=== PATIENT | female | born 1955 | race Caucasian/White ===

== ENCOUNTER 2017-03-12 08:49 | Emergency (ER) | payer BC ==
[2017-03-12 09:01] VITALS: TEMP 98; BMI 31.1
[2017-03-12] MEDS ORDERED: KETOROLAC TROMETHAMINE 60 MG/2 ML VIAL IM ONE (09:32)
[2017-03-12] MEDS ORDERED: diazePAM 5 MG TABLET PO ONE (09:32)
[2017-03-12] MEDS ORDERED: KETOROLAC TROMETHAMINE 60 MG/2 ML VIAL ONE (09:37)
[2017-03-12] MEDS ORDERED: diazePAM 5 MG TABLET ONE (09:37)
--- NOTE | 2017-03-12 09:40 | PDOC ---
*Physical Exam - Vital Signs Last Vital Signs Temp Pulse Resp BP Pulse Ox 98 F 85 20 146/107 98 03/12/17 08:58 03/12/17 08:58 03/12/17 08:58 03/12/17 08:58 03/12/17 08:58 Medical Decision Making - Medical Decision Making 03/12/17 09:36 61y F hx of htn, hl, cervical radiculopathy presents with atraumatic left low back pain with radiation down the L legPt notes her back was bothering her yesterday, laura went for her typical walk around the track and was having more pain but pushed through it until she was in significant pain. When she woke up this morning, she felt worsened back pain with parasthesias on her L leg. on exam pt has no focal bony tenderness normal ROM of extremities normal strength sensation intact will give toradol and valium suspect muscle spasm A portion of this note was documented by scribe services under my direction. I have reviewed the details of the note, within reason, and agree with the documentation with the following case summary and management plan written by me 03/14/17 11:23 see other chart for full documentation *DC/Admit/Observation/Transfer Diagnosis at time of Disposition: Sciatica of left side - Discharge Dispostion Disposition: HOME Condition at time of disposition: Improved - Referrals Referrals: Tomas Espinosa MD [Primary Care Provider] - - Patient Instructions Printed Discharge Instructions: DI for Back Pain With Sciatica Additional Instructions: Return to the emergency department immediately with ANY new, persistent or worsening symptoms including numbness, tingling, weakness, fevers or any other concerns. Take ibuprofen (400mg)/tylenol(650mg) every 6 hours for 2 days. Apply heat to your sore muscles. You MUST call and follow up with your doctor tomorrow for further evaluation of your symptoms. Your emergency department visit is not complete without a followup with your doctor for reevaluation.. Results were discussed with you. Please make sure your doctor reviews the results of your emergency evaluation. Print Language: MALTESE - Post Discharge Activity
--- NOTE | 2017-03-12 10:01 | PDOC ---
History of Present Illness - General History Source: Patient, Family Exam Limitations: Language Barrier - History of Present Illness Initial Comments: 03/12/17 10:47 61 year old female, with significant past medical history of HTN, DM, and GERD, who presents to the emergency room complaining of 2 days of atraumatic, gradually worsening lower back pain with numbness and tingling radiating down the left leg that started yesterday morning. Around 3:00pm yesterday, the patient went for her daily walk around the track, but had to stop walking secondary to increasing pain to the lower back. She took 2 Aleve with mild relief. The patient woke up this morning with increased pain and numbness and tingling down her left leg. There is no associated weakness. She notes discomfort while laying down and ambulating. The patient is Vietnamese speaking and history was obtained through translation from daughter and daughter- in- law. Denies recent trauma, and heavy lifting. Denies urinary and bowel incontinence. Denies history of back pain. Denies fever, chills, nausea, vomiting. Denies dysuria, hematuria, urinary frequency Allergies: NKA PCP: Dr. Tomas Espinosa <Stephany Benavidez - Last Filed: 03/12/17 11:22> <Onur Mcguire - Last Filed: 03/12/17 11:38> - General Chief Complaint: Weakness Stated Complaint: WEAKNESS, PAIN Time Seen by Provider: 03/12/17 09:15 Past History <Stephany Benavidez - Last Filed: 03/12/17 11:22> - Past Medical History Anemia: No Asthma: No Cancer: No Cardiac Disorders: No CVA: No COPD: No CHF: No DVT: No Dementia: No Diabetes: Yes Dialysis: No GI Disorders: Yes (GERD) HTN: Yes - Surgical History Abdominal Surgery: (hernia repair) Cholecystectomy: Yes - Immunization History Immunization Up to Date: Yes - Suicide/Smoking/Psychosocial Hx Smoking Status: No Smoking History: Never smoked Have you smoked in the past 12 months: No Number of Cigarettes Smoked Daily: 0 Hx Alcohol Use: No Drug/Substance Use Hx: No Substance Use Type: None Hx Substance Use Treatment: No <Onur Mcguire - Last Filed: 03/12/17 11:38> - Past Medical History Allergies/Adverse Reactions: Allergies Allergy/AdvReac Type Severity Reaction Status Date / Time No Known Allergies Allergy Verified 03/12/17 09:01 Home Medications: Ambulatory Orders Hydrocodone/Acetaminophen [Lortab 7.5-325 mg Tablet] 1 each PO PRN 08/04/15 Review of Systems - Review of Systems Able to Perform ROS?: Yes Comments:: 03/12/17 10:47 CONSTITUTIONAL: No reported: Fever, Chills, Diaphoresis, Generalized Weakness, Malaise, Loss of Appetite HEENT: No reported: Rhinorrhea, Nasal Congestion, Throat Pain, Throat Swelling, Difficulty Swallowing, Mouth Swelling, Ear Pain, Eye Pain, Visual Changes CARDIOVASCULAR: No reported: Chest Pain, Syncope, Palpitations, Irregular Heart Rate, Lightheadedness, Peripheral Edema RESPIRATORY: No reported: Cough, Shortness of Breath, SOB with Exertion, Orthopnea, Wheezing , Stridor, Hemoptysis GASTROINTESTINAL: No reported: Abdominal pain, Abdominal Distension, Nausea, Vomiting, Diarrhea, Constipation, Melena, Hematochezia GENITOURINARY: No reported: Dysuria, Frequency, Urgency, Hesitancy, Flank Pain, Genital Pain MUSCULOSKELETAL: Positive: +lower back pain with numbness and tingling down the leg SKIN: No reported: Rash, Itching, Pallor NEUROLOGIC: No reported: Headache, Focal Weakness, Paresthesias, Vertigo, Lightheadedness, Unsteady Gait, Seizure, Mental Status Changes, Incontinence PSYCHIATRIC: No reported: Anxiety, Depression <Stephany Benavidez - Last Filed: 03/12/17 11:22> *Physical Exam - Vital Signs Last Vital Signs Temp Pulse Resp BP Pulse Ox 98 F 85 20 146/107 98 03/12/17 08:58 03/12/17 08:58 03/12/17 08:58 03/12/17 08:58 03/12/17 08:58 - Physical Exam Comments: 03/12/17 10:47 GENERAL: The patient is awake, alert, and fully oriented, Nontoxic - in no acute distress. HEAD: Normocephalic, atraumatic. NECK: Normal range of motion, supple LUNGS: Breath sounds equal, clear to auscultation bilaterally. No wheezes, no rhonchi, no rales. HEART: Regular rate and rhythm, normal S1 and S2 without murmur, rub or gallop. ABDOMEN: Soft, nontender, normoactive bowel sounds. EXTREMITIES: Normal range of motion, no edema. BACK: no focal midline cervical/thoracic/lumbar tenderness, mild L lower back pain, mild L buttock pain that exacerbates her tingling, +SLR on L leg to 45 degrees. NEUROLOGICAL: No facial assymetry, Normal speech, movin all 4 extremities spontaneously and symmetrically PSYCH: Normal mood, normal affect. SKIN: Warm, Dry, normal turgor <Stephany Benavidez - Last Filed: 03/12/17 11:22> - Vital Signs Last Vital Signs Temp Pulse Resp BP Pulse Ox 98 F 85 20 146/107 98 03/12/17 08:58 03/12/17 08:58 03/12/17 08:58 03/12/17 08:58 03/12/17 08:58 <Onur Mcguire - Last Filed: 03/12/17 11:38> ED Treatment Course - Medications Given in the ED: ED Medications Discontinued Medications Generic Name Dose Route Start Last Admin Trade Name Freq PRN Reason Stop Dose Admin Diazepam 5 mg 03/12/17 09:32 03/12/17 09:48 Valium - PO 03/12/17 09:33 5 mg ONCE ONE Administration Ketorolac Tromethamine 60 mg 03/12/17 09:32 03/12/17 09:47 Toradol Injection - IM 03/12/17 09:33 60 mg ONCE ONE Administration <Stephany Benavidez - Last Filed: 03/12/17 11:22> - Medications Given in the ED: ED Medications Discontinued Medications Generic Name Dose Route Start Last Admin Trade Name Freq PRN Reason Stop Dose Admin Diazepam 5 mg 03/12/17 09:32 03/12/17 09:48 Valium - PO 03/12/17 09:33 5 mg ONCE ONE Administration Ketorolac Tromethamine 60 mg 03/12/17 09:32 03/12/17 09:47 Toradol Injection - IM 03/12/17 09:33 60 mg ONCE ONE Administration <Onur Mcguire - Last Filed: 03/12/17 11:38> Medical Decision Making - Medical Decision Making 03/12/17 10:01 61y F hx of htn, hl, cervical radiculopathy presents with atraumatic left low back pain with radiation down the L legPt notes her back was bothering her yesterday, laura went for her typical walk around the track and was having more pain but pushed through it until she was in significant pain. When she woke up this morning, she felt worsened back pain with parasthesias on her L leg. on exam pt has no focal bony tenderness normal ROM of extremities normal strength sensation intact will give toradol and valium suspect muscle spasm A portion of this note was documented by scribe services under my direction. I have reviewed the details of the note, within reason, and agree with the documentation with the following case summary and management plan written by me 03/12/17 11:05 pt feeling improved, still feels mild pain will give her some tylenol pt now mobile and able to mvoe from bed to chair awaitng xrays if p feeling improved will dc with supportive care at home and PMD fu 03/12/17 11:37 pt feeling improved was able to ambulate to the xray xray neg for fx some osteophytes noted will dc pt with supportive care for sciatica I discussed the physical exam findings, ancillary test results and final diagnoses with the patient. I answered all of the patient's questions. The patient was satisfied with the care received and felt comfortable with the discharge plan and treatment plan. The patient will call their primary care physician within 24 hours to arrange follow-up and will return to the Emergency Department with any new, persistent or worsening symptoms. <Onur Mcguire - Last Filed: 03/12/17 11:38> *DC/Admit/Observation/Transfer - Attestations Scribe Attestion: 03/12/17 10:48 Documentation prepared by EMMA Batista, acting as faculty i on call medical assistant for Onur Mcguire MD. <Stephany Benavidez - Last Filed: 03/12/17 11:22> - Discharge Dispostion Admit: No <Onur Mcguire - Last Filed: 03/12/17 11:38> Diagnosis at time of Disposition: Sciatica of left side - Discharge Dispostion Disposition: HOME Condition at time of disposition: Improved - Referrals Referrals: Tomas Espinosa MD [Primary Care Provider] - - Patient Instructions Printed Discharge Instructions: DI for Back Pain With Sciatica Additional Instructions: Return to the emergency department immediately with ANY new, persistent or worsening symptoms including numbness, tingling, weakness, fevers or any other concerns. Take ibuprofen (400mg)/tylenol(650mg) every 6 hours for 2 days. Apply heat to your sore muscles. You MUST call and follow up with your doctor tomorrow for further evaluation of your symptoms. Your emergency department visit is not complete without a followup with your doctor for reevaluation.. Results were discussed with you. Please make sure your doctor reviews the results of your emergency evaluation. Print Language: FRISIAN
[2017-03-12] MEDS ORDERED: ACETAMINOPHEN 325 MG TABLET (FP) PO ONE (10:44)
[2017-03-12] MEDS ORDERED: ACETAMINOPHEN 325 MG TABLET (FP) ONE (10:50)
[2017-03-12 12:03] VITALS: BP 135/90; PULSE 88
== END 2017-03-12 12:06 | disposition home or self-care (01) ==
LOC: JER 08:49
PROC: 3E0233Z Introduction of Anti-inflammatory into Muscle, Percutaneous Approach (ICD-10-PCS; principal; 2017-03-12)
DX: M54.32 Sciatica, left side (principal); I10 Essential (primary) hypertension; E11.9 Type 2 diabetes mellitus without complications; K21.9 Gastro-esophageal reflux disease without esophagitis
CPT/HCPCS: 72100-TC; 99283-25

== ENCOUNTER 2018-07-20 21:41 | Emergency (ER) | payer BC, OTHER ==
[2018-07-20 21:54] VITALS: BP 168/68; PULSE 73; TEMP 98.3; BMI 33.5
--- NOTE | 2018-07-20 23:55 | PDOC ---
History of Present Illness - General Chief Complaint: Hematuria Stated Complaint: PAIN Time Seen by Provider: 07/20/18 23:12 History Source: Patient, Family (Daughter present at bedside.), Pt declined Color Grinder Exam Limitations: Language Barrier - History of Present Illness Initial Comments: HPI: 62 y/o female presenting to [facility] ED complaining of hematuria and dysuria for the past two days. States she has been experiencing burning with urination that lasts the duration of the void. Endorses increased urinary frequency and mild suprapubic tenderness. No h/o of similar. Not anticoagulated. Pt is Armenian speaking. Declined telephone transition mgr rn. Requested daughter provide interpretation. PCP: Dr. Tomas Espinosa Medical Hx: - HTN - HLD - Diabetes, managed with metformin - S/p appendectomy Past History - Past Medical History Allergies/Adverse Reactions: Allergies Allergy/AdvReac Type Severity Reaction Status Date / Time No Known Allergies Allergy Verified 07/20/18 21:54 Home Medications: Ambulatory Orders Hydrocodone/Acetaminophen [Lortab 7.5-325 mg Tablet] 1 each PO PRN 08/04/15 Miconazole Nitrate [Monistat 1] 1 each VG ASDIR #1 kit 07/21/18 Anemia: No Asthma: No Cancer: No Cardiac Disorders: No CVA: No COPD: No CHF: No DVT: No Dementia: No Diabetes: Yes Dialysis: No GI Disorders: Yes (GERD) HTN: Yes - Surgical History Abdominal Surgery: (hernia repair) Cholecystectomy: Yes - Immunization History Immunization Up to Date: Yes - Suicide/Smoking/Psychosocial Hx Smoking Status: No Smoking History: Never smoked Have you smoked in the past 12 months: No Number of Cigarettes Smoked Daily: 0 Information on smoking cessation initiated: No Hx Alcohol Use: No Drug/Substance Use Hx: No Substance Use Type: None Hx Substance Use Treatment: No Review of Systems - Review of Systems Able to Perform ROS?: Yes Comments:: In addition to that documented in the HPI above, the additional ROS was obtained : Constitutional: Denies fevers or chills Head: Denies vision changes ENMT: Denies sore throat CV: Denies chest pain Resp: Denies SOB GI: Denies vomiting or diarrhea : Per HPI MSK: Denies recent trauma Skin: Denies new rashes Neuro: Denies new numbness or tingling or weakness Endocrine: Denies polyuria Heme: Denies bleeding or bruising *Physical Exam - Vital Signs Last Vital Signs Temp Pulse Resp BP Pulse Ox 98.3 F 73 18 168/68 100 07/20/18 21:51 07/20/18 21:51 07/20/18 21:51 07/20/18 21:51 07/20/18 21:51 - Physical Exam Comments: Constitutional: Well-developed, well-nourished, non-toxic adult female in no acute distress or obvious discomfort. Found sitting upright on edge of hospital hallway bed. Alert and oriented x4. Answered all questions appropriately and completely. Speech was non-labored, non-pressured. Observed walking through the department unassisted without difficulty. Head: Normocephalic. No obvious external signs of trauma. Neck: Supple, trachea is midline. Cardiovascular / Chest: Regular rate and regular rhythm. No murmur, rubs, clicks, or gallops. Peripheral pulses: radial pulses full. Respiratory: Breathing unlabored. Equal chest rise and fall. Clear to auscultation bilaterally. No stridor, no wheezing, no rhonchi. Gastrointestinal: abdomen is tender in suprapubic region without rebound or guarding. Globally, abdomen is soft and non-distended. No pulsatile masses. No overlying skin lesions or obvious signs of trauma. Neuro: Alert and oriented. Moving all four extremities spontaneously. Gait normal. Skin: Warm, dry, and intact. : No R or L CVA tenderness. Psych: Affect: appropriate. Mood: normal. Female Pelvic: External genitalia unremarkable. Speculum exam with normal appearing clear vaginal discharge. Mild erythema to lateral vaginal wall mucosa. Cervix visualized and is unremarkable (closed in appearance without any protruding material). No obvious areas of bleeding or skin breakdown. Female ED Attending chaperoned exam. ED Treatment Course - LABORATORY CBC & Chemistry Diagram: 07/21/18 00:21 07/21/18 00:21 - ADDITIONAL ORDERS Additional order review: 07/21/18 07/21/18 00:21 00:21 Sodium 136 Potassium 4.1 Chloride 105 Carbon Dioxide 25 Anion Gap 7 L BUN 15 Creatinine 0.8 Creat Clearance w eGFR 72.44 Random Glucose 374 H* Calcium 9.0 Total Bilirubin 0.3 AST 32 ALT 58 Alkaline Phosphatase 121 H Total Protein 6.8 Albumin 3.6 Urine Color Yellow Urine Appearance Clear Urine pH 6.0 Ur Specific [place] 1.036 H Urine Protein Negative Urine Glucose (UA) 2+ H Urine Ketones Negative Urine Blood Negative Urine Nitrite Negative Urine Bilirubin Negative Urine Urobilinogen 1.0 Ur Leukocyte Esterase Negative 07/21/18 00:21 RBC 4.18 MCV 90.6 MCHC 34.6 RDW 12.5 MPV 9.3 Neutrophils % 49.9 Lymphocytes % 39.3 Monocytes % 9.0 Eosinophils % 1.0 Basophils % 0.8 Medical Decision Making - Medical Decision Making *Reviewed vital signs, nursing notes, and prior visit documentation (if available). 62 y/o female presenting with 2 days of hematuria, dysuria, and increased urinary frequency. No h/o of similar. Mild suprapubic tenderness. Afebrile. Vitals unremarkable for hypotension or tachycardia. Suspect likely hemorrhagic cystitis. Ordered UA with culture, CBC, and CMP given diabetic history. CBC unremarkable for leukocytosis. CMP unremarkable for elevated Cr or BUN. Elevated glucose noted. Will defer back to PCP for further management of diabetes. UA unremarkable for hematuria, pyuria, nitrites, or leukocyte esterase. Urine culture pending. Low suspicion for acute cystitis. Will place call back for urine culture. Pelvic exam then performed to evaluate for other sources of bleeding (documented above). Possible candidal vulvovaginitis given mild erythema, pts diabetes history with 2+ glucose in urine, as well as dysuria lasting entire duration of void. Ordered diflucan PO. Will prescribe Tioconazole vaginal cream. Discussed imaging and laboratory results with pt and daughter. Answered all questions. Provided return precautions. Pt and daughter expressed verbal understanding and agreement with plan to discharge home with outpatient follow up. *DC/Admit/Observation/Transfer Diagnosis at time of Disposition: Vaginal candidiasis - Discharge Dispostion Disposition: HOME Condition at time of disposition: Good Decision to Admit order: No - Prescriptions Prescriptions: Miconazole Nitrate [Monistat 1] 1 each VG ASDIR #1 kit - Referrals Schedule a call back: Urine Culture Referrals: Tomas Espinosa MD [Primary Care Provider] - - Patient Instructions Printed Discharge Instructions: DI for Vaginal Yeast Infection, DI for Vaginal Itching Additional Instructions: You were seen today for blood in your urine and painful urination. Your blood work did not show signs of a serious infection. It did show your glucose was significantly elevated. You should go back to your primary care doctor to discuss further diabetes management. Your urinalysis did not show signs of infection. The final culture will take two days to results. The hospital will call you if the results are positive. Your painful urination may be caused by a fungal infection. You received a dose of Fluconazole (Diflucan) in the department. I sent a prescription for Tioconazole (Monistat) to your pharmacy. Take as directed on the package insert. Do not exceed the recommended dosage. Follow up with your primary care doctor within the next 3-4 days to make sure your symptoms are improving and to discuss your elevated blood sugar. You will need to call to make an appointment. The number is included in this packet. A copy of todays results are attached to this packet. Take it to the appointment so your doctor can review them. Go to the nearest emergency department if your condition worsens or you feel like you need additional emergency evaluation. Print Language: UPPER SORBIAN - Post Discharge Activity
[2018-07-21 00:43] LABS: MEAN CELL VOLUME 90.6 fl (80-96)
[2018-07-21 00:45] LABS: BASO % 0.8 % (0-2.0); HEMATOCRIT 37.9 % (32.4-45.2); HEMOGLOBIN 13.1 GM/dL (10.7-15.3); LYMPH % 39.3 % (8-40); MCH 31.3 pg (25.7-33.7); MCHC 34.6 g/dl (32.0-36.0); MEAN PLT VOLUME 9.3 fl (7.5-11.1); NEUT % 49.9 % (42.8-82.8); PLATELET COUNT 191 K/MM3 (134-434); RBC 4.18 M/mm3 (3.60-5.2); RDW 12.5 % (11.6-15.6); WHITE BLOOD COUNT 5.3 K/mm3 (4.0-10.0)
[2018-07-21 00:46] LABS: URINE APPEARANCE CLEAR; URINE BILIRUBIN NEGATIVE (NEGATIVE); URINE COLOR YELLOW; URINE GLUCOSE (UA) 2+ (NEGATIVE); URINE KETONE NEGATIVE (NEGATIVE); URINE LEUK ESTERASE NEGATIVE (NEGATIVE); URINE NITRITE NEGATIVE (NEGATIVE); URINE PROTEIN NEGATIVE (NEGATIVE)
--- NOTE | 2018-07-21 00:55 | PDOC ---
Attending Attestation - HPI HPI: 07/21/18 01:31 The patient is a 62 year old female, with a significant past medical history of , who presents to the emergency department with, hematuria, dysuria, and urinary frequency. She denies recent fevers, chills, headache or dizziness. She denies recent nausea, vomit, diarrhea or constipation. She denies recent chest pain or shortness of breath. Allergies: NKDA Primary Care Physician: Dr. Tomas Espinosa - Physicial Exam PE: 07/21/18 01:43 GENERAL: Well-appearing, well-nourished. No apparent distress. HEENT: Normocephalic, atraumatic. PERRL, EOM intact. CARDIOVASCULAR: Normal S1, S2. Regular rate and rhythm. PULMONARY: Clear to auscultation bilaterally. ABDOMEN: Soft, non-distended, non-tender. PELVIC: +Mild erythema. No significant discharge. No external lesions. EXTREMITIES: Normal ROM in all four extremities. No gross deformities. SKIN: Warm, dry. No rash NEUROLOGICAL: No focal neurological deficits. <Bipin Payan - Last Filed: 07/21/18 01:43> - Resident Resident Name: Yuriy Donis - ED Attending Attestation I have performed the following: I have examined & evaluated the patient, The case was reviewed & discussed with the resident, I agree w/resident's findings & plan, Exceptions are as noted - Medical Decision Making 07/21/18 01:54 pt has c/o dysuria but her UA is negative pelvic exam done and there is mild vaginal erythema, pt treated for mild case of vaginal candiasis also her diabetes is poorly controlled and she recently was placed on additional amount of metformin <Megan Izquierdo - Last Filed: 07/21/18 01:56> Attestations - Attestations 07/21/18 01:34 Documentation prepared by Bipin Payan, acting as certified medical dosimetrist for Megan Izquierdo MD. <Bipin Payan - Last Filed: 07/21/18 01:43>
[2018-07-21 01:12] LABS: ALBUMIN 3.6 g/dl (3.4-5.0); ALK PHOS 121 U/L (45-117); ANION GAP 7 MMOL/L (8-16); BILIRUBIN,TOTAL 0.3 mg/dL (0.2-1); BLOOD UREA NITROGEN 15 mg/dL (7-18); CHLORIDE 105 mmol/L (98-107); CO2 25 mmol/L (21-32); CREATININE 0.8 mg/dL (0.55-1.3); POTASSIUM 4.1 mmol/L (3.5-5.1); SGOT/AST 32 U/L (15-37); SGPT/ALT 58 U/L (13-61); SODIUM 136 mmol/L (136-145); TOT PROT 6.8 g/dl (6.4-8.2)
[2018-07-21 01:15] LABS: GLUCOSE,RANDOM 374 mg/dL (74-106)
[2018-07-21] MEDS ORDERED: FLUCONAZOLE 50 MG TABLET PO ONE (01:40)
[2018-07-21] MEDS ORDERED: FLUCONAZOLE 100 MG TABLET (UD) ONE (02:01)
== END 2018-07-21 02:09 | disposition home or self-care (01) ==
LOC: JER 21:41
DX: B37.3 Candidiasis of vulva and vagina (principal); I10 Essential (primary) hypertension; E11.9 Type 2 diabetes mellitus without complications; Z79.84 Long term (current) use of oral hypoglycemic drugs; E78.5 Hyperlipidemia, unspecified
CPT/HCPCS: 36415; 80053; 81003; 85025; 87086; 99281-25